=== PATIENT | female | born 1990 | race Caucasian/White ===

== ENCOUNTER 2018-12-29 11:41 | Emergency (ER) | payer OTHER ==
[~2018-12-29] VITALS: Ht 165.1 cm; Wt 73.0 kg
[2018-12-29 12:10] VITALS: Ht 165.1 cm; Wt 73.0 kg
[2018-12-29] MEDS ORDERED: NAPR-985 PO (15:56)
--- NOTE | 2018-12-29 15:59 | ERD ---
ER Documentation Chief Complaint Chief Complaint LEFT LOWER PELVIC PAIN WITH HX OF OVARIAN CYST HPI 28-year-old female presenting with lower pelvic pain. Patient is a history of ovarian cyst and has had continued pain in the lower pelvic area. Patient states that she was been seen by outside hospitals twice this week and had CT scans and ultrasounds. She was told that she had a dermoid cyst and needed surgical intervention. Patient was concerned because her pain worsened. Denies any pain with urination. Denies vomiting. Denies fevers. Denies other medical pounds. NKDA. Surgical history denies. Social history denies ROS All systems reviewed and are negative except as per history of present illness. Medications Home Meds Active Scripts Naproxen* (Naprosyn*) 500 Mg Tablet, 500 MG PO BID PRN for PAIN AND/OR INFLAMMATION, #30 TAB Prov:DEBORAH KINCAID PA-C 12/29/18 Allergies Allergies: Coded Allergies: No Known Allergy (Unverified , 12/29/18) FmHx Family History: No diabetes, No coronary disease, No other Physical Exam Vitals Vital Signs Date Temp Pulse Resp B/P (MAP) Pulse Ox O2 O2 Flow FiO2 Time Delivery Rate 12/29/18 98.7 72 18 125/82 100 12:10 (96) Physical Exam GENERAL: The patient is well-appearing, well-nourished, in no acute distress HEENT: Atraumatic. Conjunctivae are pink. Pupils equal, round, and reactive to light. There is no scleral icterus. Tympanic membranes clear bilaterally. Oropharynx clear. CHEST: Clear to auscultation bilaterally. There are no rales, wheezes or rhon chi. HEART: Regular rate and rhythm. No murmurs, clicks, rubs or gallops. ABDOMEN: Full active bowel sounds. No distention. No organomegaly. Mild tenderness palpation of the pelvic region but is not lateralized to right or left lower quadrant. Results 24 hrs Laboratory Tests Test 12/29/18 12:55 12/29/18 13:04 Urine Color STRAW Urine Clarity CLEAR Urine pH 5.0 Urine Specific [place] 1.011 Urine Ketones NEGATIVE mg/dL Urine Nitrite NEGATIVE mg/dL Urine Bilirubin NEGATIVE mg/dL Urine Urobilinogen NEGATIVE mg/dL Urine Leukocyte Esterase 1+ Tara/ul Urine Microscopic RBC 1 /HPF Urine Microscopic WBC 10 /HPF Urine Squamous Epithelial Cells FEW /HPF Urine Bacteria FEW /HPF Urine Hemoglobin NEGATIVE mg/dL Urine Glucose NEGATIVE mg/dL Urine Total Protein NEGATIVE mg/dl POC Beta HCG, Qualitative NEGATIVE Procedures/MDM DIAGNOSTIC IMAGING REPORT Patient: KERWIN DEL CASTILLO : 1990 Age: 28 Sex: F MR #: [id number] DOS: 12/29/18 1455 Ordering MD: CHIN KINCAID PA-C Location: [facility] Room/Bed: PROCEDURE: US Pelvis. CLINICAL INDICATION: pelvic pain TECHNIQUE: Multiple sonographic images of the pelvis were obtained utilizing transabdominal technique. The images were reviewed on a PACS workstation. COMPARISON: Same day FINDINGS: The uterus is normal in size with a normal appearance of the myometrium. The uterus measures 8.9 x 4.3 x 6.4 cm. The endometrial stripe is homogeneous in appearance and has the thickness of 3 mm. Normal Doppler flow is identified in both ovaries. The right ovary measures 8.5 x 5.7 x 4.6 cm. There is a 6.5 cm echogenic mass in the right ovary, suspicious for a dermoid. The left ovary measures 2.7 x 1.4 x 1.9 cm. There is a 1 cm simple cyst in the left ovary. There is a trace amount of free fluid in the right adnexa. RPTAT: AA IMPRESSION: Enlarged right ovary with a 6.5 cm echogenic mass, suspicious for a dermoid. Small amount of free fluid in the right adnexa. Small simple cyst in the left ovary. MDM: 28-year-old female presenting with a dermoid cyst. Patient does not require surgical intervention at this time. She has an OB that she will follow- up with. There is no signs of torsion. Patient is stable at time of discharge. I have low suspicion for infectious process. I have low suspicion for acute abdominal emergency. I will suspicion for urinary tract infection or pelvic infection. Patient is discharged with strict ER precautions and told to follow- up with primary care within 1 to 2 days for close evaluation. Patient is told symptoms change or worsen to return immediately to the ER. All questions answered at discharge Departure Diagnosis: Primary Impression: Acute pain in female pelvis Condition: Stable Patient Instructions: Pelvic Pain, Unknown Cause Referrals: COMMUNITY CLINICS YOU HAVE RECEIVED A MEDICAL SCREENING EXAM AND THE RESULTS INDICATE THAT YOU DO NOT HAVE A CONDITION THAT REQUIRES URGENT TREATMENT IN THE EMERGENCY DEPARTMENT. FURTHER EVALUATION AND TREATMENT OF YOUR CONDITION CAN WAIT UNTIL YOU ARE SEEN IN YOUR DOCTORS OFFICE WITHIN THE NEXT 1-2 DAYS. IT IS YOUR RESPONSIBILITY TO MAKE AN APPOINTMENT FOR FOLOW-UP CARE. IF YOU HAVE A PRIMARY DOCTOR --you should call your primary doctor and schedule an appointment IF YOU DO NOT HAVE A PRIMARY DOCTOR YOU CAN CALL OUR PHYSICIAN REFERRAL HOTLINE AT IF YOU CAN NOT AFFORD TO SEE A PHYSICIAN YOU CAN CHOSE FROM THE FOLLOWING [facility] [address] [facility] [address] [facility] [facility] [address] [facility] [address] [facility] [address] [facility] [facility]. [address] Additional Instructions: FOLLOW UP WITH YOUR PRIMARY CARE PHYSICIAN TOMORROW.Return to this facility if you are not improving as expected. DEBORAH KINCAID PA-C December 29, 2018 15:59
[2018-12-29] MEDS ORDERED: ACETAMINOPHEN 500 MG TAB PO STA (16:18)
[2018-12-29 16:35] VITALS: BP 113/56; PULSE 69; RESP 18
== END 2018-12-29 16:36 | disposition home or self-care (01) ==
LOC: FTE 11:41
DX: R10.2 Pelvic and perineal pain (principal)
CPT/HCPCS: 76830; 76856; 81001; 81025; Z7502; Z7610

== ENCOUNTER 2019-01-28 07:18 | Day surgery (SDC) | payer OTHER ==
[2019-01-27 12:58] VITALS: Ht 165.1 cm; Wt 75.0 kg
[~2019-01-28] VITALS: Ht 165.1 cm; Wt 75.0 kg
[2019-01-28] VITALS (14 sets, daily range): BP systolic 99–111; BP diastolic 45–60; PULSE 58–77; RESP 14–19
[~2019-01-28 07:18] MED LIST: NAPR-985 PO
[2019-01-28] MEDS ORDERED: ROCURONIUM 50 MG INJ ONE (07:27)
[2019-01-28] MEDS ORDERED: CEFAZOLIN 1 GM INJ ONE (07:27)
[2019-01-28] MEDS ORDERED: PROPOFOL 20 ML ONE ×2 (07:27→10:18)
[2019-01-28] MEDS ORDERED: KETOROLAC 30 MG INJ ONE (07:28)
[2019-01-28] MEDS ORDERED: MIDAZOLAM 1 MG/ML 2 ML INJ ONE (07:28)
[2019-01-28] MEDS ORDERED: ONDANSETRON 4 MG INJ ONE (07:28)
[2019-01-28] MEDS ORDERED: CLINDAMYCIN 600 MG/D5W (PMX) 50 ML IVPB ONE (07:31)
[2019-01-28] MEDS ORDERED: LIDOCAINE 1%/EPI 30 ML INJ INJ ONE (08:30)
--- NOTE | 2019-01-28 08:58 | PREAC ---
Date/Time of Note Date/Time of Note DATE: 01/28/19 TIME: 08:56 Anesthesia Eval and Record Evaluation Time Pre-Procedure Interview DATE: 01/28/19 TIME: 08:56 Age 28 Sex female NPO: 8 hrs Preoperative diagnosis R. Ovarian Cyst Planned procedure Lap. Cystectomy Past Medical History Past Medical History: Includes GI: Obesity Surgery & Anesthesia Issues No known issue Meds Anticoagulation: No Beta Vinayak within 24 hr: No Reason Beta Vinayak not given: Pt. not on B-Vinayak Discontinued Scripts Naproxen* (Naprosyn*) 500 Mg Tablet, 500 MG PO BID PRN for PAIN AND/OR INFLAMMATION, #30 TAB Prov:DEBORAH KINCAID PA-C 12/29/18 Meds reviewed: Yes Allergies Uncoded Allergies: PENICILLIN (Allergy, Severe, rashes, swollen, 12/29/18) Allergies Reviewed: Yes Labs/Studies Labs Reviewed: Reviewed by anesthesiologist test: Negative Pre-procedure Exam Last vitals Vital Signs Date Temp Pulse Resp B/P (MAP) Pulse Ox O2 O2 Flow FiO2 Time Delivery Rate 01/28/19 97.4 77 16 102/50 98 Room Air 08:49 (67) Airway: Adequate mouth opening Mallampati: Mallampati II Teeth: Normal Lung: Normal Heart: Normal ASA Physical Status ASA physical status: 2 Emergency: None Planned Anesthetic General/MAC: ETT Pre-operative Attestations Prior to commencing anesthesia and surgery, the patient was re-evaluated, there was verification of: *The patient's identity *The results of appropriate recent lab work and preoperative vital signs *The above evaluation not changing prior to induction *Anesthetic plan, risk benefits, alternative and complications discussed with patient/family; questions answered; patient/family understands, accepts and wishes to proceed. KIMBERLY SEGOVIA MD Jan 28, 2019 08:58
[2019-01-28] MEDS ORDERED: GLYCOPYRROLATE 0.4 MG INJ ONE (09:53)
[2019-01-28] MEDS ORDERED: NEOSTIGMINE 3 MG/3 ML SYRINGE ONE (09:53)
[2019-01-28] MEDS ORDERED: ONDANSETRON 4 MG INJ IV PRN (10:00)
[2019-01-28] MEDS ORDERED: HYDROmorphONE 1 MG/5 ML IV SYRINGE IV PRN (10:00)
[2019-01-28] MEDS ORDERED: FENTAnyl 50 MCG/ML VIAL IV PRN (10:00)
[2019-01-28] MEDS ORDERED: OXYCODONE/ACETAMINOPHEN (5/325) TAB PO PRN (10:00)
--- NOTE | 2019-01-28 10:36 | PAC ---
Date/Time of Note Date/Time of Note DATE: 01/28/19 TIME: 10:36 Post-Anesthesia Notes Post-Anesthesia Note Last documented vital signs Vital Signs Date Temp Pulse Resp B/P (MAP) Pulse Ox O2 O2 Flow FiO2 Time Delivery Rate 01/28/19 97.4 77 16 102/50 98 Room Air 08:49 (67) Activity: WNL Respiratory function: WNL Cardiovascular function: WNL Mental status: Baseline Pain reasonably controlled: Yes Hydration appropriate: Yes Nausea/Vomiting absent: Yes KIMBERLY SEGOVIA MD Jan 28, 2019 10:36
--- NOTE | 2019-01-28 10:50 | OPPN ---
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 Jan 28, 2019 10:50
--- NOTE | 2019-01-28 12:20 | HP ---
DATE OF ADMISSION: 01/28/2019 HISTORY OF PRESENT ILLNESS: A 28-year-old with large ovarian cyst and also multiparity, desires ster ilization. PAST MEDICAL HISTORY: Denies. PAST SURGICAL HISTORY: Denies. ALLERGIES: PENICILLIN. PHYSICAL EXAMINATION: VITAL SIGNS: Stable. GENERAL: Normal. ABDOMEN: Not tender, not distended. GENITAL: Exam within normal limits. ASSESSMENT AND PLAN: The patient with a large right ovary and cyst and also multiparity, desires juan rilization. She was consented to the operative laparoscopy, right ovarian cystectomy, possible salpi monreal-oophorectomy, possible laparotomy. Risks and benefits discussed with the patient. Consent jesús d and patient was taken to the operating room. Dictated By: BRIAN HARDY/ROSENDO Conf#: [id number] DID#: [id number]
--- NOTE | 2019-01-28 12:24 | OPR ---
DATE OF OPERATION: 01/28/2019 PREOPERATIVE DIAGNOSES: 1. Right ovarian cyst, possible dermoid cyst. 2. Multiparity, desires sterilization. POSTOPERATIVE DIAGNOSES: 1. Right ovarian cyst, size 8 x 9 cm. 2. Right ovarian torsion. PROCEDURES: Operative laparoscopy, right ovarian cystectomy, detorsion of the ovary, and bilateral t ubal ligation. Attending surgeon: Dr. Denise. ANESTHESIOLOGIST: Dr. Luo ____. TYPE OF ANESTHESIA: General. COMPLICATIONS: None. ESTIMATED BLOOD LOSS: 10 to 20 mL. DESCRIPTION OF PROCEDURE: The patient was taken to the operating room, where general anesthesia was found to be adequate. The patient was placed in dorsal lithotomy position, and after prep and drape, a weighted speculum was placed inside the vaginal vault. Anterior lip of the cervix was grasped by single-tooth tenaculum. A HUMI was inserted. Iverson was inserted. Instruments removed. Then, atten tion was turned to abdominal field. A 1 cm incision was made above the umbilicus. First trocar was inserted under direct visualization of the camera. Second and third trocars were inserted 10 cm from the first one on both sides of the patient. Right side incision was 15 mm. Trocar was inserted thr ough the right side incision, and two 5 mm trocars were inserted from the umbilical and left side inc ision. The right ovarian torsion was noticed, large ovarian cyst was noticed. Using a Gyrus applica tor, right ovarian cystectomy was done, and it was placed in an Endobag and removed through the right side incision. There was no spillage through the Endobag, and then bilateral tubal ligation was don e using the Gyrus applicator. Midportion of both tubes were cauterized using the Gyrus applicator. Then, hemostasis achieved. Irrigation of abdominal cavity was done. Gas was removed. Trocars were removed under direct visualization of the camera. Fascia was closed on the right side incision using Vicryl sutures. Skin was closed using 3-0 Monocryl sutures on all [address] d on top of the incision. HUMI was removed. Iverson was removed. The patient tolerated the procedure well and was transferred to the recovery room in stable condition. There was no complication regard ing this surgery. Dictated By: BRIAN HARDY/ROSENDO Conf#: [id number] [facility]#: [id number]
[2019-01-29] MEDS ORDERED: HYDR-4011 PO (12:04)
== END 2019-01-28 12:56 | disposition home or self-care (01) ==
LOC: SDS 07:18 → SUR 07:18
PROVIDERS: ATTEND Obstetrics & Gynecology
DX: Z30.2 Encounter for sterilization (principal); D27.0 Benign neoplasm of right ovary
CPT/HCPCS: 58662; 58670; 84703; 85610; 85730; 86850; 86900; 86901; 88307; J1170; J1885; J2250; J2405; J2710; J3010; Z7512; Z7610; J0690

== ENCOUNTER 2019-01-29 09:42 | Emergency (ER) | payer OTHER ==
[~2019-01-29] VITALS: Ht 165.1 cm; Wt 72.7 kg
[2019-01-29 09:45] VITALS: BP 102/53; PULSE 74; RESP 24; Ht 165.1 cm; Wt 72.7 kg
[2019-01-29] MEDS ORDERED: SOD CHLORIDE 0.9% 1,000 ML IV STA (09:59)
[2019-01-29] MEDS: morphine 4 MG/ML VIAL IV STA ×2 (10:14→10:20)
[2019-01-29] MEDS: ONDANSETRON 4 MG INJ IV STA ×2 (10:15→10:20)
[2019-01-29] MEDS ORDERED: SOD CHLORIDE 0.9% 100 ML ONE (11:03)
[2019-01-29] MEDS ORDERED: IOHEXOL 100 ML ONE (11:03)
[2019-01-29] MEDS ORDERED: HYDR-4011 PO (12:04)
--- NOTE | 2019-01-29 12:08 | ERD ---
ER Documentation Chief Complaint Chief Complaint SOB SINCE THIS MORNING; CYCST REMOVAL SURGEY YESTERDAY HPI 28-year-old female underwent a laparoscopic ovarian cystectomy yesterday. After going home from the surgery, she awoke this morning feeling short of breath with significant discomfort in her abdomen. The abdominal pain was nonspecific and poorly localized associated with no fevers, chills or vomiting. Shortness of breath was associated with no fevers, chills, sputum production or hemoptysis. She reported the discomfort is severe and came to the emergency department for evaluation. ROS All systems reviewed and are negative except as per history of present illness. Medications Home Meds Active Scripts Hydrocodone/Acetaminophen ([place] 5-325 Tablet) 1 Each Tablet, 1 TAB PO Q6H PRN for PAIN, #7 TAB Prov:CHENTE SCHILLING 01/29/19 Discontinued Scripts Naproxen* (Naprosyn*) 500 Mg Tablet, 500 MG PO BID PRN for PAIN AND/OR INFLAMMATION, #30 TAB Prov:DEBORAH KINCAID PA-C 12/29/18 Allergies Allergies: Coded Allergies: Penicillins (Verified Allergy, Unknown, 01/29/19) PMhx/Soc History of Surgery: Yes (D&C) Anesthesia Reaction: No Hx Neurological Disorder: No Hx Respiratory Disorders: No Hx Cardiac Disorders: No Hx Psychiatric Problems: No Hx Miscellaneous Medical Probl: Yes (RHEUMATOD ARTHRITIS) Hx Alcohol Use: No Hx Substance Use: No Hx Tobacco Use: No Smoking Status: Never smoker FmHx Noncontributory for chief complaint Physical Exam Vitals Vital Signs Date Temp Pulse Resp B/P (MAP) Pulse Ox O2 O2 Flow FiO2 Time Delivery Rate 01/29/19 Nasal 2 10:04 Cannula 01/29/19 99.2 74 24 102/53 99 09:45 (69) Physical Exam GENERAL: The patient is well developed and appropriate for usual state of health in no apparent distress HEENT: Pupils equal, round, and reactive to light. EOMI. There is no scleral icterus. NECK: C-spine is soft and supple, there is no meningismus. There is no cervical lymphadenopathy. LUNGS: Clear to auscultation bilaterally. There are no rales, wheezes or rhonchi. HEART: Regular rate and rhythm, no murmurs, clicks, rubs or gallops. ABDOMEN: Postoperative, soft, non-tender, non-distended. There are bowel sounds in all four quadrants. No rebound or guarding. EXTREMITIES: There is no peripheral cyanosis or edema. No focal swelling or erythema. NEURO: The patient moves all four extremities with 5/5 strength. Cranial nerves II - XII are intact. Normal gait. Alert and oriented SKIN: There is no apparent rash or petechiae. HEME/LYMPHATIC: There is no evidence of excessive bruising or lymphedema. PSYCHIATRIC: The patient does not appear anxious or depressed. Result Diagram: 01/29/19 1015 01/29/19 1014 Results 24 hrs Laboratory Tests Test 01/29/19 10:07 01/29/19 10:14 01/29/19 10:15 01/29/19 11:06 Urine Color STRAW Urine Clarity CLEAR Urine pH 8.0 Urine Specific 1.009 [place] Urine Ketones NEGATIVE mg/dL Urine Nitrite NEGATIVE mg/dL Urine Bilirubin NEGATIVE mg/dL Urine NEGATIVE mg/dL Urobilinogen Urine Leukocyte NEGATIVE Tara/ul Esterase Urine Microscopic 0 /HPF RBC Urine Microscopic 1 /HPF WBC Urine Hemoglobin 2+ mg/dL Urine Glucose NEGATIVE mg/dL Urine Total NEGATIVE mg/dl Protein Sodium Level 144 mmol/L Potassium Level 4.1 mmol/L Chloride Level 108 mmol/L Carbon Dioxide 26 mmol/L Level Anion Gap 10 Blood Urea 10 mg/dl Nitrogen Creatinine 0.44 mg/dl Est Glomerular > 60 mL/min Filtrat Rate mL/min Glucose Level 95 mg/dl Calcium Level 9.3 mg/dl Total Bilirubin 0.4 mg/dl Direct Bilirubin 0.00 mg/dl Indirect 0.4 mg/dl Bilirubin Aspartate Amino 12 IU/L Transf (AST/SGOT) Alanine 28 IU/L Aminotransferase (ALT/SGPT) Alkaline 65 IU/L Phosphatase Total Protein 7.5 g/dl Albumin 4.0 g/dl Globulin 3.50 g/dl Albumin/Globulin 1.14 Ratio Lipase 80 U/L White Blood Count 6.5 10^3/ul Red Blood Count 3.96 10^6/ul Hemoglobin 9.4 g/dl Hematocrit 30.4 % Mean Corpuscular 76.8 fl Volume Mean Corpuscular 23.7 pg Hemoglobin Mean Corpuscular 30.9 g/dl Hemoglobin Concen t Red Cell 15.9 % Distribution Width Platelet Count 268 10^3/UL Mean Platelet 9.4 fl Volume Immature 0.300 % Granulocytes % Neutrophils % 56.6 % Lymphocytes % 32.6 % Monocytes % 7.8 % Eosinophils % 2.2 % Basophils % 0.5 % Nucleated Red 0.0 /100WBC Blood Cells % Immature 0.020 10^3/ul Granulocytes # Neutrophils # 3.7 10^3/ul Lymphocytes # 2.1 10^3/ul Monocytes # 0.5 10^3/ul Eosinophils # 0.1 10^3/ul Basophils # 0.0 10^3/ul Nucleated Red 0.0 10^3/ul Blood Cells # Prothrombin Time 13.0 Sec Prothrombin Time 1.0 Ratio INR International 0.97 Normalized Ratio Activated 27.5 Sec Partial Thrombopl ast Time POC Beta HCG, NEGATIVE Qualitative Current Medications Medications Dose Sig/Melissa Start Time Status Last (Trade) Ordered Route PRN Stop Time Admin Dose Reason Admin Sodium 1,000 ml @ Q1H STAT 01/29/19 DC 01/29/19 Chloride 1,000 mls/hr IV 09:59 10:14 01/29/19 10:58 Morphine 4 mg ONCE STAT 01/29/19 DC Sulfate IV 09:59 (morphine) 01/29/19 10:01 Ondansetron 4 mg ONCE STAT 01/29/19 DC HCl (Zofran IV 09:59 Inj) 01/29/19 10:01 IV Flush 10 ml STK-MED 01/29/19 DC (NS 10 ml) ONCE .ROUTE 11:03 01/29/19 11:04 Sodium 100 ml @ ud STK-MED 01/29/19 DC Chloride ONCE .ROUTE 11:03 01/29/19 11:04 Iohexol 100 ml @ ud STK-MED 01/29/19 DC ONCE .ROUTE 11:03 01/29/19 11:04 Procedures/MDM Patient was taken to a room, seen and evaluated. Comfort measures were initiated . Diagnostic tests were ordered and reviewed. 3 LEAD RHYTHM STRIP: Normal sinus rhythm without ectopy EK lead EKG reviewed by myself: Normal Sinus Rhythm Normal [place] and intervals No ST elevation, depression, or T wave inversion Impression: Normal EKG RADIOLOGY: Reviewed with the radiologist REEVALUATION: 1200: Diagnostic tests were appreciated. Patient's pain was well controlled. Serial examinations of her abdomen remained benign. MEDICAL DECISION MAKIN-year-old female presents the emergency department with postoperative abdominal pain and shortness of breath. Diagnostic work-up focused on the possibility of pulmonary embolism as well as intra-abdominal postoperative complications including bleeding, infection and other concern. At this time, patient CT demonstrates no evidence of significant intra-abdominal concerns and her CAT scan of her chest has ruled out pulmonary embolism. Overall, she is nontoxic after pain control. I suspect her symptoms are likely related to normal postoperative pain from the laparoscopic procedure. Patient is much improved after supportive care and seems appropriate for discharge. Departure Diagnosis: Primary Impression: Post-operative pain Condition: Stable Patient Instructions: Post Op Wound Check, Pain Additional Instructions: See your doctor for follow-up as discussed. Take a copy of your test results, if appropriate, to this follow-up visit. See your doctor or return here if your symptoms do not improve as expected. At any time, please return to the emergency department for any change or worsening in her symptoms. CHENTE SCHILLING Jan 29, 2019 12:08
== END 2019-01-29 12:44 | disposition home or self-care (01) ==
LOC: E/R 09:42
DX: G89.18 Other acute postprocedural pain (principal)
CPT/HCPCS: 36415; 71275; 74177; 80053; 81001; 81025; 83690; 85025; 85610; 85730; J7030; Q9967; Z7502; Z7610; 93005; J2270; J2405